=== PATIENT | female | born 1950 | race Caucasian/White ===

== ENCOUNTER 2016-11-29 11:32 | Emergency (ER) | payer MEDICARE ==
[~2016-11-29] VITALS: Ht 162.6 cm; Wt 74.0 kg
[~2016-11-29 11:32] MED LIST: ASPI81TA40 PO; HYDR50TA4 PO; K10 PO; MTP50TCR PO; [UNRECOGNIZED DRUG - CODE] PO
[2016-11-29 11:37] VITALS: BP 169/93; PULSE 55; RESP 16; O2SAT 100
--- NOTE | 2016-11-29 11:53 | ED.REPORT ---
HPI-General Illness Date of Service Nov 29, 2016 ED Provider: Terra Méndez MD Patient is a 66 year old female with a hx of HTN and hypothyroid who presents to the ED after being referred by Dr. Campbell complaining of a low heart rate onset this morning. Associated symptoms include intermittent palpitations. She denies chest pain, SOB, lower extremity swelling, recent weight gain, or any other symptoms. Patient takes Toprol XL (50mg in the evening) and recently started irbesartan, 75mg. Nursing Notes Stated Complaint: NAUSEA/LOW PULSE Chief Complaint: Chest Pain Nursing Notes Reviewed: Yes Allergies: Coded Allergies: No Known Allergies (Unverified , 05/23/06) Scheduled Aspirin-Expunged Drug, Do Not Renew! (Aspirin-Expunged Drug, Do Not Renew!) 81 Mg Tab.chew 81 MG PO DAILY Hydrochlorothiazide-Expunged, Do Not Renew! (Hydrochlorothiazide-Expunged, Do Not Renew!) 50 Mg Tablet 50 MG PO DAILY Irbesartan (Irbesartan) 75 Mg Tablet 75 MG PO BID Metoprolol Suc-Expunged Drug, Do Not Renew! (Metoprolol Suc-Expunged Drug, Do Not Renew!) 50 Mg Tber 50 MG PO DAILY Metoprolol Succinate ER (Toprol XL) 25 Mg Tablet 25 MG PO DAILY Potassium Chl-Expunged Drug, Do Not Renew! (B-XMY-Nrcacika Drug, Do Not Renew!) 10 Meq Tabsr 10 MEQ PO DAILY THYROID-Expunged Drug, Do Not Renew! (THYROID-Expunged Drug, Do Not Renew!) 60 Mg Tab 120 MG PO DAILYAC General Time Seen by MD: 11:49 Chief Complaint Other (Low HR ) Hx Obtained From: Patient Arrived By: Walk-in Onset Occurred: 1 - 4 hours ago Symptom Duration: Since onset Severity: Current: No pain currently Severity: Maximum: No pain Past Medical History Past Medical History hypothyroid HTN arthritis Past Surgical History Bilat meniscus repair L ankle cardiac cath Smoking History Former Smoker (for 3 years ) Social History Alcohol Use: Denies alcohol use (rare ) Other Social History: Good social support, Ambulatory Status Independent Review of Systems +low heart rate -recent weight gain Full Review of Systems Respiratory: Denies: Shortness of breath Cardiovascular: Reports: Palpitations, Denies: Chest pain Musculoskeletal: Denies: Extremity swelling Complete sys rev & neg: except as marked. Physical Exam Vital Signs Vital Signs Date Time Temp Pulse Resp B/P Pulse Ox O2 Delivery O2 Flow Rate FiO2 11/29/16 15:40 36.8 55 19 143/66 100 Room Air 11/29/16 14:17 47 16 147/54 97 Room Air 11/29/16 11:37 36.5 55 16 169/93 100 Room Air Initial VS: Reviewed, Vital signs abnormal Head / Eyes: Atraumatic, Normocephalic Neck: Supple, Full range of motion Skin: Warm, Dry Neurologic: Alert, Oriented, Nonfocal Psychiatric: Mood/affect normal, Behavior normal, Normal thought content General/Constitutional: Awake, Alert, No acute distress Respiratory / Chest: Atraumatic, Breath sounds NL, Breath sounds = bilat, No respiratory distress, No rales Cardiovascular: Regular rhythm, Heart sounds NL, No murmurs Heart Rate / Rhythm: Positive: Bradycardia Lower Extremity / Pelvis / MS: No edema Interpretation & Diagnostics Lab Results Interpretation Result Diagram: 11/29/16 1204 11/29/16 1204 Test 11/29/16 12:04 White Blood Count 5.0th/mm3 (3.8-10.1) Red Blood Count 4.98mil/mm3 (3.90-5.20) Hemoglobin 15.4g/dL (12.0-15.6) Hematocrit 43.6% (35.0-46.0) Mean Corpuscular Volume 87.6fL (81-100) Mean Corpuscular Hemoglobin 30.9pg (27.0-35.0) Mean Corpuscular Hemoglobin Concent 35.3% (32.0-37.0) Red Cell Distribution Width 13.1% (12.3-15.4) Platelet Count 229bil/L (150-400) Neutrophils (%) (Auto) 54.1% (40-74) Lymphocytes (%) (Auto) 34.6% (14-46) Monocytes (%) (Auto) 8.5% (4-12) Eosinophils (%) (Auto) 2.4% (0-5) Basophils (%) (Auto) 0.4% (0-3) Sodium Level 137mEq/L (134-144) Potassium Level 4.1mEq/L (3.5-5.2) Chloride Level 99mEq/L (97-108) Carbon Dioxide Level 24mmol/L (18-29) Blood Urea Nitrogen 17mg/dL (8-27) Creatinine 0.60mg/dL (0.57-1.00) Estimat Glomerular Filtration Rate 143mL/min (>59) Glucose Level 96mg/dL (60-99) Calcium Level 9.4mg/dL (8.5-10.1) Magnesium Level 2.0mg/dL (1.6-2.6) Total Bilirubin 0.5mg/dL (0.0-1.2) Aspartate Amino Transf (AST/SGOT) 18U/L (0-50) Alanine Aminotransferase (ALT/SGPT) 18U/L (0-32) Alkaline Phosphatase 63U/L (25-165) Troponin T 0.010ug/L (0.0-0.011) Total Protein 7.4g/dL (6.4-8.4) Albumin 4.4g/dL (3.4-5.0) Lab Results Interpretation: Cardiac MRI: IMPRESSION: 1. Delayed enhancement of the septum and anteroseptal wall compatible with sequelae of a prior infarct including transmural enhancement at the base of the septum. 2. Global hypokinesis with akinesia of the septum. 3. Decreased left ventricular ejection fraction of 48 %. 4. Mild mitral regurgitation and trace tricuspid regurgitation. 5. Mild dilatation of the left ventricle. Dictated by: Kailash Matthews M.D. on 11/20/2016 at 14:22 ECG Interpretation ECG Interpretation: Sinus bradycardia rate 40 LBBB Time: 11:54 Interpreted by: ED physician X-Ray Chest Interpretation Chest Xray Interpretation: IMPRESSION: Stable chest. No acute cardiopulmonary process is evident. Dictated by: Jose Ball M.D. on 11/29/2016 at 11:21 Approved by: Jose Ball M.D. on 11/29/2016 at 11:22 View: Portable, 1 view Interpretation / Wet Read by: Interpret - Radiologist Re-Eval/Medical Decision Time of Eval: 14:30 Re-Evaluation/Progress Note: Rechecked pt. Discussed lab and xray results. Discussed plan to consult with Shannan. Patient understands and agrees with plan. All questions addressed at this time. Time of Eval: 15:12 Re-Evaluation/Progress Note: Discussed plan for discharge with medication change. Patient understands and agrees with plan. All questions addressed at this time. Consultation : Referral / Consult Name: Cameron Campbell MD Consulted With: Cardiology Call Returned at: 15:07 Steward/Stewardess Tourist Class: Agrees with [facility], Agrees with plan Note: Discussed pt's case. Decreased metoprolol and increase irbesartan. Counseled Regarding: Diagnosis, Lab results, Need for follow-up, When/why to return to ED Discharge & Departure Primary Impression: Hypertension Hypertension type: unspecified secondary hypertension Qualified Code: I15.9 - Secondary hypertension, unspecified Additional Impression: Bradycardia Disposition: Home Discharge Condition All VS Reviewed: Yes Condition: Stable Patient Instructions: Bradycardia (ED), Chronic Hypertension (ED) Additional Instructions: Thank you for coming to the emergency department. Your examination, X-ray, and EKG are reassuring. We did not find a dangerous cause for your symptoms at this time. I spoke with Dr. Campbell who agrees that we should decrease your metoprolol and increase your irbesartan. Follow up with Dr. Campbell at your previously scheduled appointment. Return to the emergency department if you experience headache, chest pain, shortness of breath, or any other new or concerning symptoms. Referrals: Tiff Patricia MD (PCP) Scribe Attestation Portions of this note were transcribed by Bibi Dumont. I, Dr. Méndez personally performed the history, physical exam and medical decision-making; I reviewed and confirmed the accuracy of the information in the transcribed note. Signed: Jimy Leonard, 11/29/16 copies to: Tiff Patricia MD, Shawna L MD Nov 29, 2016 11:53 BIBI DUMONT Nov 29, 2016 12:02
[2016-11-29 12:17] LABS: BASOPHILS % (AUTO) 0.4 % (0-3); EOSINOPHILS % (AUTO) 2.4 % (0-5); MONOCYTES % (AUTO) 8.5 % (4-12); Mean Corpuscular Hemoglobin 30.9 pg (27.0-35.0); Mean Corpuscular Volume 87.6 fL (81-100); NEUTROPHILS % (AUTO) 54.1 % (40-74); Platelet Count 229 bil/L (150-400)
--- NOTE | 2016-11-29 12:23 | DRSVH ---
PROCEDURE: X-RAY CHEST ONE VIEW, PORTABLE ([id number]) INDICATIONS: Chest pain. TECHNIQUE: One view of the chest was acquired. COMPARISON: [facility], , CHEST 1VW (PORTABLE), 10/05/2008, 19:33. FINDINGS: Surgical changes and devices: None. Lungs and pleura: No pleural effusions or pneumothorax. Lungs are clear. Mediastinum: Mediastinal contours appear normal. Heart size is normal. Bones and chest wall: No suspicious bony lesions. Overlying soft tissues appear unremarkable. IMPRESSION: Stable chest. No acute cardiopulmonary process is evident. Dictated by: Jose Ball M.D. on 11/29/2016 at 11:21 Approved by: Jose Ball M.D. on 11/29/2016 at 11:22
[2016-11-29 12:37] LABS: TROPONIN T 0.01 ug/L (0.0-0.011)
[2016-11-29 14:17] VITALS: BP 147/54; PULSE 47; RESP 16; O2SAT 97
[2016-11-29] MEDS ORDERED: METO25TA3 PO (15:16)
[2016-11-29] MEDS ORDERED: IRBE75TA10 PO (15:16)
[2016-11-29 15:40] VITALS: BP 143/66; PULSE 55; RESP 19; O2SAT 100
== END 2016-11-29 15:51 | disposition home or self-care (01) ==
LOC: SED 11:32
DX: I15.9 Secondary hypertension, unspecified (principal); R00.1 Bradycardia, unspecified; E03.9 Hypothyroidism, unspecified; Z87.891 Personal history of nicotine dependence; Z79.82 Long term (current) use of aspirin